=== PATIENT | male | born 1960 | race Caucasian/White ===

== ENCOUNTER 2017-07-13 16:15 | Inpatient (IN) ==
[2017-07-16 05:32] LABS: Alanine Aminotransferase 13 Units/L (7-52); Albumin 2.9 g/dL (3.5-5.7); Albumin/Globulin Ratio 1.1 (1.1-2.2); Alkaline Phosphatase 89 Units/L (34-104); Aspartate Amino Transferase 21 Units/L (13-39); BUN/Creatinine Ratio 11 (6-26); Bilirubin,Total 0.6 mg/dL (0.3-1.0); Blood Urea Nitrogen 8 mg/dL (6-20); Calcium 8.3 mg/dL (8.6-10.3); Carbon Dioxide 25 mEq/L (23-29); Chloride 105 mEq/L (98-107); Globulin 2.7 g/dL (2.4-3.5); Glucose 93 mg/dL (70-105); Osmolality,Calculated 278 (280-300); Potassium 3.9 mEq/L (3.5-5.1); Sodium 135 mEq/L (136-145); Total Protein 5.6 g/dL (6.4-8.9); eGFR For African Americans > 60 (> 60); eGFR For Non-African Americans > 60 (> 60)
[2017-07-16] MEDS ORDERED: Thiamine (B-1) 100 MG TABLET PO SCH (09:00)
[2017-07-16] MEDS: Multivit/Ca/Min/Fe/FA 1 TAB TABLET PO SCH (09:38)
[2017-07-16] MEDS: levETIRAcetam 250 MG TABLET PO SCH ×2 (09:38→21:01)
[2017-07-16] MEDS: *HR* Enoxaparin 40 MG/0.4 ML SYRINGE SQ SCH (09:39)
[2017-07-16] MEDS: Nicotine 7 MG PATCH.TD24 TD SCH (09:39)
[2017-07-16] MEDS: Sennosides 8.6 MG TABLET PO SCH (09:39)
[2017-07-16] MEDS: VENELEX TP SCH ×3 (09:40→21:02)
[2017-07-16] MEDS: Folic Acid 1 MG TABLET PO SCH (12:11)
[2017-07-17] MEDS: Sennosides 8.6 MG TABLET PO SCH (08:48)
[2017-07-17] MEDS: *HR* Enoxaparin 40 MG/0.4 ML SYRINGE SQ SCH (08:48)
[2017-07-17] MEDS: Nicotine 7 MG PATCH.TD24 TD SCH (08:49)
[2017-07-17] MEDS: levETIRAcetam 250 MG TABLET PO SCH ×2 (08:49→20:22)
[2017-07-17] MEDS: Folic Acid 1 MG TABLET PO SCH (08:50)
[2017-07-17] MEDS: VENELEX TP SCH ×3 (09:20→20:23)
[2017-07-17] MEDS: Multivit/Ca/Min/Fe/FA 1 TAB TABLET PO SCH (09:20)
--- NOTE | 2017-07-17 12:36 | Internal Med Progress Note ---
Date of Encounter: 07/17/17 Time of Encounter: 12:33 - Assessment and plan (1) Status post left hip replacement Current Visit: Yes Status: Acute Assessment and plan: Left hip surgical site appears healthy with incisions and dressings dry and intact. No erythema or edema noted. Patient mobilizing well with physical therapy. States pain medication has been effective. We will continue with current plan of care. (2) Alcoholic cirrhosis Current Visit: Yes Status: Acute Assessment and plan: No acute issues. Patient noted to have slight distention of abdomen area and history of ascites. We will monitor patient's LFTs with serial labs. Patient does state he continues to actively drink. We will monitor for any issues of withdrawal or behavior. Qualifiers: Ascites presence: with ascites Qualified Code(s): K70.31 - Alcoholic cirrhosis of liver with ascites (3) CAD (coronary artery disease) Current Visit: Yes Status: Acute Assessment and plan: No acute issues. Patient denies any chest discomforts or palpitations. We will continue with current medications. Qualifiers: Coronary Disease-Associated Artery/Lesion type: [place] artery [place] vs. transplanted heart: [place] heart Associated angina: angina presence unspecified Qualified Code(s): I25.10 - Atherosclerotic heart disease of [place] coronary artery without angina pectoris (4) CVA (cerebral vascular accident) Current Visit: Yes Status: Acute Assessment and plan: Patient with history of CVA with no residual noted. We will continue with current therapy. Vital signs stable. Qualifiers: CVA mechanism: unspecified Qualified Code(s): I63.9 - Cerebral infarction, unspecified - Time Spent With Patient less than 15 minutes - Subjective Interval history: Patient appears relaxed and currently denies any discomforts or shortness of breath. Patient does state his left hip was somewhat sore after mobilizing, but states pain medication has been effective - Constitutional Vitals: Temp Pulse Resp BP Pulse Ox 98.4 F 73 16 113/69 93 07/17/17 07:00 07/17/17 09:30 07/17/17 09:30 07/17/17 09:30 07/17/17 09:30 General appearance: Present: A&O X 3, pleasant - Head Head exam: Present: atraumatic, normocephalic - Eye Eye exam: Present: PERRL, conjuntiva pink, sclera anicteric Pupils: Present: PERRL - Neck Neck exam general surgery: Present: supple, trachea midline. Absent: lymphadenopathy - Respiratory Respiratory exam: Present: CTAB. Absent: accessory muscle use, rales, rhonchi, wheezes - Cardiovascular Cardiovascular exam: Present: RRR, +S1, +S2. Absent: diastolic murmur, gallop, rubs, systolic murmur - GI/Abdominal GI/Abdominal exam: Present: normal bowel sounds, soft, no peritoneal signs. Absent: distended, tenderness Additional comments: Slightly distended. History of ascites - Extremities Exam Extremities exam: Present: warm, radial pulses palpable and symmetrical. Absent : calf tenderness, cyanotic, pedal edema Additional comments: Left hip surgical incision appears healthy and intact. No erythema or edema noted - Neurological Exam Neurological exam: Present: CN II-XII intact, oriented X3, no focal deficits. Absent: pronater drift, facial droop, speech deficit - Skin Skin exam: Present: dry, intact Internal Medicine: Result - Labs CBC & Chem 7: 07/16/17 04:21 Consult Discharge Plan - Plan Referrals: Jame Padilla [Primary Care Provider] -
[2017-07-17 17:49] LABS: INR 1.1
[2017-07-17 17:54] LABS: Basophils % 0.6 %; Eosinophils # 0.1 K/mcL (0.0-0.6); Eosinophils % 3.4 %; Hematocrit 23.8 % (37.5-50.1); Hemoglobin 8.1 g/dL (12.9-16.9); Immature Granulocytes % 0.6 % (0-4); Lymphocytes # 0.9 K/mcL (0.6-4.6); Lymphocytes % 24.9 %; Mean Corpuscular Hemoglobin 35.4 pg (28.0-33.3); Mean Corpuscular Volume 103.9 fL (83.0-100.0); Mean Platelet Volume 9.4 fL (9.4-12.4); Monocytes # 0.4 K/mcL (0.0-1.3); Monocytes % 10.1 %; Neutrophils # 2.2 K/mcL (1.6-8.9); Platelet Count 191 K/mcL (140-400); Red Blood Count 2.29 M/mcL (4.19-5.50); Red Cell Distribution Width 14.6 % (11.5-14.5); Segmented Neutrophils % 60.4 %
[2017-07-18 06:22] LABS: Albumin 3.5 g/dL (3.5-5.7); Albumin/Globulin Ratio 1.3 (1.1-2.2); Bilirubin,Total 1.2 mg/dL (0.3-1.0); Calcium 8.8 mg/dL (8.6-10.3); Globulin 2.7 g/dL (2.4-3.5); Potassium 4.1 mEq/L (3.5-5.1); Total Protein 6.2 g/dL (6.4-8.9)
[2017-07-18 07:41] LABS: Hematocrit 20.1 % (37.5-50.1); Mean Corpuscular HGB Conc 34.8 g/dL (31.6-35.5); Mean Corpuscular Hemoglobin 36.1 pg (28.0-33.3); Mean Corpuscular Volume 103.6 fL (83.0-100.0); Mean Platelet Volume 9.4 fL (9.4-12.4); Platelet Count 172 K/mcL (140-400); Red Blood Count 1.94 M/mcL (4.19-5.50); Red Cell Distribution Width 14.6 % (11.5-14.5)
[2017-07-18] MEDS: Folic Acid 1 MG TABLET PO SCH (10:05)
[2017-07-18] MEDS: Multivit/Ca/Min/Fe/FA 1 TAB TABLET PO SCH (10:05)
[2017-07-18] MEDS: *HR* Enoxaparin 40 MG/0.4 ML SYRINGE SQ SCH (10:05)
[2017-07-18] MEDS: Nicotine 7 MG PATCH.TD24 TD SCH (10:05)
[2017-07-18] MEDS: levETIRAcetam 250 MG TABLET PO SCH ×2 (10:05→19:43)
[2017-07-18] MEDS: VENELEX TP SCH ×3 (10:06→19:45)
[2017-07-18] MEDS: Sennosides 8.6 MG TABLET PO SCH (10:07)
--- NOTE | 2017-07-18 11:20 | Internal Med Progress Note ---
Date of Encounter: 07/18/17 Time of Encounter: 11:18 - Assessment and plan (1) Status post left hip replacement Current Visit: Yes Status: Acute Assessment and plan: Continue PT\OT. Will follow progress. Monitor for pain. Follow up with ortho as scheduled. (2) Alcoholic cirrhosis Current Visit: Yes Status: Acute Assessment and plan: Will monitor labs. Abdomen slightly distended probable ascites. Skin slightly jaundiced Qualifiers: Ascites presence: with ascites Qualified Code(s): K70.31 - Alcoholic cirrhosis of liver with ascites (3) CVA (cerebral vascular accident) Current Visit: Yes Status: Acute Assessment and plan: Old CVA. New new neurological deficits at this time. Qualifiers: CVA mechanism: unspecified Qualified Code(s): I63.9 - Cerebral infarction, unspecified - Time Spent With Patient less than 15 minutes - Subjective Interval history: Participating with therapy. Patient complains often on of left shoulder pain. Unable to raise over shoulder height. Bruising to underside of left upper arm. Patient unaware of particular injury. Poor historian. Patient believed to be at baseline mentally. History of alcohol abuse with cirrhosis. Patient states he currently drinks alcohol. Hemoglobin 7.0. Will repeat labs in the morning. BUN 25 creatinine 1.56. Will encourage PO fluids. - Constitutional Vitals: Temp Pulse Resp BP Pulse Ox 98.4 F 88 16 98/65 96 07/18/17 06:00 07/18/17 06:00 07/18/17 06:00 07/18/17 06:00 07/18/17 06:00 General appearance: Present: cooperative, A&O X 1, pleasant, no acute distress - Head Head exam: Present: atraumatic, normocephalic - Eye Eye exam: Present: PERRL, conjuntiva pink, sclera anicteric Pupils: Present: PERRL - Neck Neck exam general surgery: Present: supple, trachea midline. Absent: lymphadenopathy - Respiratory Respiratory exam: Present: CTAB. Absent: accessory muscle use, rales, rhonchi, wheezes - Cardiovascular Cardiovascular exam: Present: RRR, +S1, +S2. Absent: diastolic murmur, gallop, rubs, systolic murmur - GI/Abdominal GI/Abdominal exam: Present: normal bowel sounds, soft, no peritoneal signs. Absent: distended, tenderness Additional comments: Slight abdominal and distention due to ascites. - Extremities Exam Extremities exam: Present: warm, radial pulses palpable and symmetrical. Absent : calf tenderness, cyanotic, pedal edema - [place] Comments: Left hip incision dressing dry and intact. No drainage or sign of infection. - Neurological Exam Neurological exam: Present: alert, CN II-XII intact, no focal deficits. Absent : pronater drift, facial droop, speech deficit - Skin Skin exam: Present: dry, intact Additional comments: Slightly jaundiced skin. Internal Medicine: Result - Labs CBC & Chem 7: 07/18/17 05:40 07/18/17 05:40 Labs: Short CBC 07/17/17 07/18/17 Range/Units 17:31 05:40 WBC 3.6 L 3.0 L (4.3-11.1) K/mcL Hgb 8.1 L 7.0 L (12.9-16.9) g/dL Hct 23.8 L 20.1 L (37.5-50.1) % Plt Count 191 172 (140-400) K/mcL Neutrophils # 2.2 (1.6-8.9) K/mcL BMP 07/18/17 05:40 Sodium 136 Potassium 4.1 Chloride 102 Carbon Dioxide 29 BUN 25 H Creatinine 1.56 H Glucose 130 H Calcium 8.8 Liver Function 07/18/17 Range/Units 05:40 Total Bilirubin 1.2 H (0.3-1.0) mg/dL AST 29 (13-39) Units/L ALT 30 (7-52) Units/L Alkaline Phosphatase 78 (34-104) Units/L Albumin 3.5 (3.5-5.7) g/dL - ABG Interpretation ABG results: PT/INR, D-dimer PT 12.0 Seconds (9.4-12.1) 07/17/17 17:31 Consult Discharge Plan - Plan Referrals: Jame Padilla [Primary Care Provider] -
[2017-07-18] MEDS: Thiamine (B-1) 100 MG TABLET PO SCH (16:26)
[2017-07-18 17:03] LABS: INR 1.1; Prothrombin Time 12.1 Seconds (9.4-12.1)
[2017-07-18] MEDS: cephALEXin 500 MG CAPSULE PO SCH ×2 (19:43→23:13)
[2017-07-19] MEDS: cephALEXin 500 MG CAPSULE PO SCH ×4 (05:26→22:34)
[2017-07-19 06:57] LABS: Basophils % 0.7 %; Eosinophils # 0.2 K/mcL (0.0-0.6); Eosinophils % 6.9 %; Hematocrit 20.5 % (37.5-50.1); Immature Granulocytes % 0.3 % (0-4); Lymphocytes % 33.7 %; Mean Corpuscular HGB Conc 34.1 g/dL (31.6-35.5); Mean Corpuscular Hemoglobin 35.7 pg (28.0-33.3); Mean Corpuscular Volume 104.6 fL (83.0-100.0); Mean Platelet Volume 8.9 fL (9.4-12.4); Monocytes # 0.3 K/mcL (0.0-1.3); Monocytes % 11.5 %; Neutrophils # 1.4 K/mcL (1.6-8.9); Platelet Count 181 K/mcL (140-400); Red Blood Count 1.96 M/mcL (4.19-5.50); Red Cell Distribution Width 14.6 % (11.5-14.5); Segmented Neutrophils % 46.9 %
[2017-07-19 07:28] LABS: Alanine Aminotransferase 18 Units/L (7-52); Albumin 3.2 g/dL (3.5-5.7); Albumin/Globulin Ratio 1.1 (1.1-2.2); Alkaline Phosphatase 102 Units/L (34-104); Aspartate Amino Transferase 24 Units/L (13-39); BUN/Creatinine Ratio 15 (6-26); Bilirubin,Total 0.7 mg/dL (0.3-1.0); Blood Urea Nitrogen 11 mg/dL (6-20); Calcium 8.7 mg/dL (8.6-10.3); Carbon Dioxide 26 mEq/L (23-29); Chloride 103 mEq/L (98-107); Globulin 2.9 g/dL (2.4-3.5); Glucose 99 mg/dL (70-105); Osmolality,Calculated 279 (280-300); Potassium 4.3 mEq/L (3.5-5.1); Sodium 135 mEq/L (136-145); Total Protein 6.1 g/dL (6.4-8.9); eGFR For African Americans > 60 (> 60); eGFR For Non-African Americans > 60 (> 60)
[2017-07-19] MEDS: Sennosides 8.6 MG TABLET PO SCH (09:08)
[2017-07-19] MEDS: Multivit/Ca/Min/Fe/FA 1 TAB TABLET PO SCH (09:09)
[2017-07-19] MEDS: levETIRAcetam 250 MG TABLET PO SCH ×2 (09:10→20:12)
[2017-07-19] MEDS: Folic Acid 1 MG TABLET PO SCH (09:10)
[2017-07-19] MEDS: VENELEX TP SCH ×3 (09:11→17:49)
[2017-07-19] MEDS: Thiamine (B-1) 100 MG TABLET PO SCH (09:11)
[2017-07-19] MEDS: Nicotine 7 MG PATCH.TD24 TD SCH (09:17)
[2017-07-19] MEDS: *HR* Enoxaparin 40 MG/0.4 ML SYRINGE SQ SCH (09:18)
--- NOTE | 2017-07-19 10:14 | Internal Med History&Physical ---
Date of Encounter: 07/16/17 Time of Encounter: 19:05 Assessment and Plan (1) Alcoholic cirrhosis Current visit: Yes Status: Acute Apparently, this is well-known and is at baseline. The patient states he is off heavy alcohol and down to only 12-13 beers per day. He has little insight into this and states that he has been involved with AA in the past. Family ( father) is aware of his alcohol intake. He has had paracentesis in the past but it is unsure as to how long ago. Will discuss with other family members, as available. Caregiver is not currently available. Qualifiers: Ascites presence: with ascites Qualified Code(s): K70.31 - Alcoholic cirrhosis of liver with ascites (2) CAD (coronary artery disease) Current visit: Yes Status: Acute This is stable, per patient. No recent symptoms. Per history received, had an non-STEMI in the past. Again, per history provided empirically April 2016. Will continue home regimen. Qualifiers: Coronary Disease-Associated Artery/Lesion type: [place] artery [place] vs. transplanted heart: [place] heart Associated angina: angina presence unspecified Qualified Code(s): I25.10 - Atherosclerotic heart disease of [place] coronary artery without angina pectoris (3) Status post left hip replacement Current visit: Yes Status: Acute We will begin therapies as planned. I am concerned that he will be able to retain information, given his baseline mental status. Family will have a discussion, when they are available. (4) CVA (cerebral vascular accident) Current visit: Yes Status: Acute Etiology is uncertain history is vague, per patient. We will monitor, continue as planned. Qualifiers: CVA mechanism: unspecified Qualified Code(s): I63.9 - Cerebral infarction, unspecified (5) Seizure disorder Current visit: Yes Status: Acute Etiology is uncertain. This might have been alcohol withdrawal. In any event, is on anti-epileptics and will keep an seizure precautions. Watch for symptoms. (6) Hypothyroidism Current visit: Yes Status: Acute Clinically stable. We will continue home regimen and follow. Qualifiers: Hypothyroidism type: unspecified Qualified Code(s): E03.9 - Hypothyroidism , unspecified Internal Medicine - H&P: HPI Chief complaint: Status post left hip fracture with left total hip replacement. Admitted From: Home Plans for Post Hospital Care: Home History of present illness: Mr. Phelan is a 56 year old male known to have alcoholic cirrhosis. He was at home but fell in the bathroom, found him and he was found to have a hip fracture. Underwent left total hip replacement. He has failed to improve after surgery, in terms of mental status. He states his pain is mild, at worst. Past Med Surg Social Fam HX - Past Medical History Source: unable to obtain Medical history: cirrhosis, coronary artery disease, CVA, myocardial infarction , seizures, thyroid disease - Past Surgical History Surgical History: orthopedic, other - Social History Smoking Status: Current every day smoker Packs per day: 1/2 pack Smokeless Tobacco Status: No Alcohol use: occasionally Drug use: none Internal Medicine - H&P: Meds Aspirin Enteric Coated [Aspirin EC] 81 mg PO DAILY 07/15/17 [History] Balsam [place] Oil [Venelex Ointment Packet] 1 appful TP TID 07/15/17 [ History] Enoxaparin [Lovenox] 40 mg SQ DAILY 07/15/17 [History] Ergocalciferol (VITAMIN D2) [Drisdol (50,000 Unit)] 50,000 unit PO QWEEK [History] Folic Acid 1 mg PO DAILY 07/15/17 [History] LevETIRAcetam [Keppra] 1,500 mg PO HS 07/15/17 [History] LevETIRAcetam [Keppra] 750 mg PO DAILY 07/15/17 [History] Levothyroxine [Synthroid] 50 mcg PO 0630 07/15/17 [History] Lipitor 40 mg PO DAILY 07/15/17 [History] Multivit/Ca/Min/Fe/FA [Thera M Plus] 1 tab PO DAILY 07/15/17 [History] Nicotine Patch [Nicoderm] 7 mg TD DAILY 07/15/17 [History] Pantoprazole Sodium [Protonix] 40 mg PO DAILY 07/15/17 [History] Potassium Chloride [K-Tab ER] 20 meq PO DAILY 07/15/17 [History] Sennosides [Senokot] 8.6 mg PO DAILY 07/15/17 [History] Thiamine (B-1) [Vitamin B-1] 1 tab PO DAILY 07/15/17 [History] 3 Allergy/AdvReac Type Severity Reaction Status Date / Time No Known Allergies Allergy Verified 07/15/17 21:28 ROS unobtainable: due to mental status All Systems PM: Review of systems is limited by patient's mental status. It is obtained but of questionable value. Patient has no complaint of chest discomfort, dyspnea, orthopnea, palpitations, nausea or vomiting, constipation or diarrhea, other changes in bowel habits, difficulty with urination, rash or itching, or other new complaints, except as mentioned above. Review of systems is otherwise unremarkable. - Constitutional Vitals: Temp Pulse Resp BP Pulse Ox 98.1 F 86 16 100/65 96 07/19/17 09:00 07/19/17 09:00 07/19/17 09:00 07/19/17 09:00 07/19/17 09:00 General appearance: Present: cooperative, A&O X 1, pleasant Exam: Examination: (Except as mentioned above): General: In no apparent distress, alert and oriented 1, only. He does pretty well at discussing his disorientation. Head: Atraumatic and normocephalic. Eyes: Extraocular muscles are intact, pupils equal round and reactive to light and accommodation. Sclerae anicteric. Ears: External ears are normal to inspection and hearing is grossly normal. Nose: Patent without lesion noted. Mouth: No intraoral lesions seen. He is edentulous without dentures. Neck: Supple with trachea midline. There is no thyromegaly or adenopathy and carotids are 2+ without bruit heard. Respiratory: No use of accessory muscles. Lungs are clear throughout. Normal airflow. Cardiovascular: Regular rate and rhythm without murmur appreciated. Abdomen: Bowel sounds are normal. No hepatosplenomegaly masses or tenderness. Obese and therefore difficult to palpate deeply. Extremities: No cyanosis clubbing or edema. Left hip without erythema or swelling beyond usual postop; nothing to suggest cellulitis. Neurological: A and O 1, as above. Cranial nerves II through XII are intact. No focal deficits and no abnormal movements or postures. While his responsiveness is limited, he has no asterixis. Skin: Warm and non-diaphoretic with no lesions noted. Breasts, pelvic and rectal: Not examined. Internal Med - H&P Results - Labs CBC & Chem 7: 07/19/17 06:45 07/19/17 06:45 Labs: Short CBC 07/19/17 Range/Units 06:45 WBC 2.9 L (4.3-11.1) K/mcL Hgb 7.0 L (12.9-16.9) g/dL Hct 20.5 L (37.5-50.1) % Plt Count 181 (140-400) K/mcL Neutrophils # 1.4 L (1.6-8.9) K/mcL BMP 07/19/17 06:45 Sodium 135 L Potassium 4.3 Chloride 103 Carbon Dioxide 26 BUN 11 Creatinine 0.71 Glucose 99 Calcium 8.7 Liver Function 07/19/17 Range/Units 06:45 Total Bilirubin 0.7 (0.3-1.0) mg/dL AST 24 (13-39) Units/L ALT 18 (7-52) Units/L Alkaline Phosphatase 102 (34-104) Units/L Albumin 3.2 L (3.5-5.7) g/dL
--- NOTE | 2017-07-19 14:01 | Internal Med Progress Note ---
Date of Encounter: 07/19/17 Time of Encounter: 13:58 - Assessment and plan (1) Status post left hip replacement Current Visit: Yes Status: Acute Assessment and plan: Continue PT\OT. Will follow progress. Monitor for pain. Follow up with ortho as scheduled. (2) Alcoholic cirrhosis Current Visit: Yes Status: Acute Assessment and plan: Will monitor labs. Skin slightly jaundiced Qualifiers: Ascites presence: with ascites Qualified Code(s): K70.31 - Alcoholic cirrhosis of liver with ascites (3) CVA (cerebral vascular accident) Current Visit: Yes Status: Acute Assessment and plan: Old CVA. New new neurological deficits at this time. Qualifiers: CVA mechanism: unspecified Qualified Code(s): I63.9 - Cerebral infarction, unspecified (4) Postoperative anemia due to acute blood loss Current Visit: Yes Status: Acute Assessment and plan: Hemoglobin stable at 7.0. Will repeat CBC AM - Time Spent With Patient 25 - 35 minutes - Subjective Interval history: Participating with therapy. Ambulated hundred and 60 feet with standby to contact guard assist. Patient complains often on of left shoulder pain. Unable to raise over shoulder height. Refused x-ray. Bruising to underside of left upper arm. Patient unaware of particular injury. Poor historian. Patient believed to be at baseline mentally. History of alcohol abuse with cirrhosis. - Constitutional Vitals: Temp Pulse Resp BP Pulse Ox 98.1 F 86 16 100/65 96 07/19/17 09:00 07/19/17 09:00 07/19/17 09:00 07/19/17 09:00 07/19/17 09:00 General appearance: Present: cooperative, A&O X 1, pleasant - Head Head exam: Present: atraumatic, normocephalic - Eye Eye exam: Present: PERRL, conjuntiva pink, sclera anicteric Pupils: Present: PERRL - Neck Neck exam general surgery: Present: supple, trachea midline. Absent: lymphadenopathy - Respiratory Respiratory exam: Present: CTAB. Absent: accessory muscle use, rales, rhonchi, wheezes - Cardiovascular Cardiovascular exam: Present: RRR, +S1, +S2. Absent: diastolic murmur, gallop, rubs, systolic murmur - GI/Abdominal GI/Abdominal exam: Present: normal bowel sounds, soft, no peritoneal signs. Absent: distended, tenderness - Extremities Exam Extremities exam: Present: warm, radial pulses palpable and symmetrical. Absent : calf tenderness, cyanotic, pedal edema - Neurological Exam Neurological exam: Present: CN II-XII intact, oriented X3, no focal deficits. Absent: pronater drift, facial droop, speech deficit - Skin Skin exam: Present: dry, intact Additional comments: Slightly jaundiced skin. Left hip incision dressing dry and intact. No sign of infection. Internal Medicine: Result - Labs CBC & Chem 7: 07/19/17 06:45 07/19/17 06:45 Labs: Short CBC 07/19/17 Range/Units 06:45 WBC 2.9 L (4.3-11.1) K/mcL Hgb 7.0 L (12.9-16.9) g/dL Hct 20.5 L (37.5-50.1) % Plt Count 181 (140-400) K/mcL Neutrophils # 1.4 L (1.6-8.9) K/mcL BMP 07/19/17 06:45 Sodium 135 L Potassium 4.3 Chloride 103 Carbon Dioxide 26 BUN 11 Creatinine 0.71 Glucose 99 Calcium 8.7 Liver Function 07/19/17 Range/Units 06:45 Total Bilirubin 0.7 (0.3-1.0) mg/dL AST 24 (13-39) Units/L ALT 18 (7-52) Units/L Alkaline Phosphatase 102 (34-104) Units/L Albumin 3.2 L (3.5-5.7) g/dL - ABG Interpretation ABG results: PT/INR, D-dimer PT 12.1 Seconds (9.4-12.1) 07/18/17 15:10 Consult Discharge Plan - Plan Referrals: Jame Padilla [Primary Care Provider] -
[2017-07-20] MEDS: cephALEXin 500 MG CAPSULE PO SCH ×4 (06:29→21:59)
[2017-07-20 07:41] LABS: Basophils % 0.4 %; Eosinophils # 0.2 K/mcL (0.0-0.6); Eosinophils % 5.7 %; Hematocrit 19.6 % (37.5-50.1); Hemoglobin 6.6 g/dL (12.9-16.9); Immature Granulocytes % 0.4 % (0-4); Lymphocytes # 0.9 K/mcL (0.6-4.6); Lymphocytes % 35.7 %; Mean Corpuscular HGB Conc 33.7 g/dL (31.6-35.5); Mean Corpuscular Hemoglobin 35.5 pg (28.0-33.3); Mean Corpuscular Volume 105.4 fL (83.0-100.0); Mean Platelet Volume 9.3 fL (9.4-12.4); Monocytes # 0.3 K/mcL (0.0-1.3); Monocytes % 9.9 %; Neutrophils # 1.3 K/mcL (1.6-8.9); Platelet Count 214 K/mcL (140-400); Red Blood Count 1.86 M/mcL (4.19-5.50); Red Cell Distribution Width 14.8 % (11.5-14.5); Segmented Neutrophils % 47.9 %
[2017-07-20] MEDS: Sennosides 8.6 MG TABLET PO SCH (08:53)
[2017-07-20] MEDS: levETIRAcetam 250 MG TABLET PO SCH ×2 (08:53→20:07)
[2017-07-20] MEDS: Multivit/Ca/Min/Fe/FA 1 TAB TABLET PO SCH (08:54)
[2017-07-20] MEDS: Thiamine (B-1) 100 MG TABLET PO SCH (08:54)
[2017-07-20] MEDS: Folic Acid 1 MG TABLET PO SCH (08:54)
[2017-07-20] MEDS: Nicotine 7 MG PATCH.TD24 TD SCH (08:55)
[2017-07-20] MEDS: *HR* Enoxaparin 40 MG/0.4 ML SYRINGE SQ SCH (08:55)
[2017-07-20] MEDS: VENELEX TP SCH ×3 (09:17→20:07)
--- NOTE | 2017-07-20 14:45 | Internal Med Progress Note ---
Date of Encounter: 07/20/17 Time of Encounter: 14:43 - Assessment and plan (1) Anemia due to acute blood loss Current Visit: Yes Status: Acute Assessment and plan: Patient's hemoglobin continued to drop down to 6.6. Patient remains asymptomatic. No signs of active bleeding noted. We will transfuse with 2 units of packed RBCs. Will require call stools. Discontinue Lovenox and place MAYTE hose on. We will recheck labs in the morning. (2) Status post left hip replacement Current Visit: Yes Status: Acute Assessment and plan: Left hip surgical site appears healthy with incisions and dressings dry and intact. No erythema or edema noted. Patient mobilizing well with physical therapy. States pain medication has been effective. We will continue with current plan of care. Patient being prepared for discharge tomorrow. (3) Alcoholic cirrhosis Current Visit: Yes Status: Acute Assessment and plan: No acute issues. Patient noted to have slight distention of abdomen area and history of ascites. Patient's LFTs on labs remained stable. Patient does state he continues to actively drink. No issues of withdrawal or behaviors during his stay. Qualifiers: Ascites presence: with ascites Qualified Code(s): K70.31 - Alcoholic cirrhosis of liver with ascites (4) CAD (coronary artery disease) Current Visit: Yes Status: Acute Assessment and plan: No acute issues. Patient denies any chest discomforts or palpitations. We will continue with current medications. Qualifiers: Coronary Disease-Associated Artery/Lesion type: [place] artery [place] vs. transplanted heart: [place] heart Associated angina: angina presence unspecified Qualified Code(s): I25.10 - Atherosclerotic heart disease of [place] coronary artery without angina pectoris (5) CVA (cerebral vascular accident) Current Visit: Yes Status: Acute Assessment and plan: Patient with history of CVA with no residual noted. We will continue with current therapy. Vital signs stable. Qualifiers: CVA mechanism: unspecified Qualified Code(s): I63.9 - Cerebral infarction, unspecified - Subjective Interval history: Patient appears relaxed and currently denies any discomforts or shortness of breath. Patient's morning labs were reviewed which shows that hemoglobin has again dropped to 6.6. Patient denies any symptoms when questioned. Vital signs stable. Patient does state his left hip was somewhat sore after mobilizing, but states pain medication has been effective - Constitutional Vitals: Temp Pulse Resp BP Pulse Ox 98.3 F 90 16 113/70 96 07/20/17 07:44 07/20/17 07:44 07/20/17 07:44 07/20/17 07:44 07/20/17 07:44 General appearance: Present: cooperative, A&O X 3, pleasant - Head Head exam: Present: atraumatic, normocephalic - Eye Eye exam: Present: PERRL, conjuntiva pink, sclera anicteric Pupils: Present: PERRL - Neck Neck exam general surgery: Present: supple, trachea midline. Absent: lymphadenopathy - Respiratory Respiratory exam: Present: CTAB. Absent: accessory muscle use, rales, rhonchi, wheezes - Cardiovascular Cardiovascular exam: Present: RRR, +S1, +S2. Absent: diastolic murmur, gallop, rubs, systolic murmur - GI/Abdominal GI/Abdominal exam: Present: normal bowel sounds, soft, no peritoneal signs. Absent: distended, tenderness Additional comments: Slightly distended, but soft - Extremities Exam Extremities exam: Present: warm, radial pulses palpable and symmetrical. Absent : calf tenderness, cyanotic, pedal edema Additional comments: Left hip surgical incision appears dry and intact. No ecchymosis or swelling noted. - Neurological Exam Neurological exam: Present: CN II-XII intact, oriented X3, no focal deficits. Absent: pronater drift, facial droop, speech deficit - Skin Skin exam: Present: dry, intact Internal Medicine: Result - Labs CBC & Chem 7: 07/20/17 06:45 07/19/17 06:45 Labs: Short CBC 07/20/17 Range/Units 06:45 WBC 2.6 L (4.3-11.1) K/mcL Hgb 6.6 L (12.9-16.9) g/dL Hct 19.6 L (37.5-50.1) % Plt Count 214 (140-400) K/mcL Neutrophils # 1.3 L (1.6-8.9) K/mcL - ABG Interpretation ABG results: PT/INR, D-dimer PT 12.1 Seconds (9.4-12.1) 07/18/17 15:10 Consult Discharge Plan - Plan Referrals: Jame Padilla [Primary Care Provider] -
[2017-07-21 06:59] LABS: Hematocrit 27.4 % (37.5-50.1); Hemoglobin 9.4 g/dL (12.9-16.9); Mean Corpuscular HGB Conc 34.3 g/dL (31.6-35.5); Mean Corpuscular Volume 96.1 fL (83.0-100.0); Mean Platelet Volume 8.9 fL (9.4-12.4); Platelet Count 244 K/mcL (140-400); Red Blood Count 2.85 M/mcL (4.19-5.50); Red Cell Distribution Width 19.2 % (11.5-14.5)
[2017-07-21 07:07] VITALS: BP 110/70
[2017-07-21] MEDS: Thiamine (B-1) 100 MG TABLET PO SCH (08:22)
[2017-07-21] MEDS: Sennosides 8.6 MG TABLET PO SCH (08:22)
[2017-07-21] MEDS: cephALEXin 500 MG CAPSULE PO SCH ×2 (08:23→12:59)
[2017-07-21] MEDS: Nicotine 7 MG PATCH.TD24 TD SCH (08:24)
[2017-07-21] MEDS: levETIRAcetam 250 MG TABLET PO SCH (08:24)
[2017-07-21] MEDS: Folic Acid 1 MG TABLET PO SCH (08:24)
[2017-07-21] MEDS: Multivit/Ca/Min/Fe/FA 1 TAB TABLET PO SCH (08:24)
[2017-07-21] MEDS: VENELEX TP SCH (08:25)
--- NOTE | 2017-07-21 09:38 | Discharge Summary ---
Orders not resulted at time of discharge: Pending orders 07/24/17 04:00 BMP [Basic Metabolic Panel] MO CBC [Complete Blood Count] [HEME] MO 07/31/17 04:00 BMP [Basic Metabolic Panel] MO CBC [Complete Blood Count] [HEME] MO 08/07/17 04:00 BMP [Basic Metabolic Panel] MO CBC [Complete Blood Count] [HEME] MO 08/14/17 04:00 BMP [Basic Metabolic Panel] MO CBC [Complete Blood Count] [HEME] MO 08/21/17 04:00 BMP [Basic Metabolic Panel] MO CBC [Complete Blood Count] [HEME] MO 08/28/17 04:00 BMP [Basic Metabolic Panel] MO CBC [Complete Blood Count] [HEME] MO 09/04/17 04:00 BMP [Basic Metabolic Panel] MO CBC [Complete Blood Count] [HEME] MO 09/11/17 04:00 BMP [Basic Metabolic Panel] MO CBC [Complete Blood Count] [HEME] MO 09/18/17 04:00 BMP [Basic Metabolic Panel] MO CBC [Complete Blood Count] [HEME] MO 09/25/17 04:00 BMP [Basic Metabolic Panel] MO CBC [Complete Blood Count] [HEME] MO Date of Encounter: 07/21/17 Time of Encounter: 09:36 - Discharge Diagnosis (1) Status post left hip replacement Priority: Primary Status: Acute (2) Anemia due to acute blood loss Priority: Secondary Status: Acute (3) Alcoholic cirrhosis Priority: Secondary Status: Chronic Qualifiers: Ascites presence: with ascites Qualified Code(s): K70.31 - Alcoholic cirrhosis of liver with ascites (4) CAD (coronary artery disease) Priority: Secondary Status: Chronic Qualifiers: Coronary Disease-Associated Artery/Lesion type: [place] artery [place] vs. transplanted heart: [place] heart Associated angina: angina presence unspecified Qualified Code(s): I25.10 - Atherosclerotic heart disease of [place] coronary artery without angina pectoris (5) CVA (cerebral vascular accident) Priority: Secondary Status: Chronic Qualifiers: CVA mechanism: unspecified Qualified Code(s): I63.9 - Cerebral infarction, unspecified Hospital course: Mr. Phelan is a 56 year old male who experienced a fall at home and had a left hip fracture. Patient had a total hip replacement on the left and surgically recovered well at Hospital. Patient did have issues with confusion postoperatively and currently remains mildly confused at times. Patient has a long history of EtOH abuse and alcoholic cirrhosis. Patient's LFTs were followed and remained stable. Patient did have postoperative anemia with his hemoglobin eventually dropping to 6.6. Patient received 2 units of packed RBCs with his post transfusion hemoglobin greater than 9. Patient had no obvious signs of bleeding noted. Patient was admitted into rehabilitation due to his debility following his hip replacement and progressed well with therapy. No other issues were experienced. Discharge discussed with: patient, family Time spent discussing smoking cessation with patient: 3 to 10 minutes - Time Spent with Patient Total time spent providing and/or coordinating discharge services: Less than 30 minutes - Discharge Medications Home Medications: Aspirin Enteric Coated [Aspirin EC] 81 mg PO DAILY 07/15/17 [History] Balsam [place] Oil [Venelex Ointment Packet] 1 appful TP TID 07/15/17 [ History] Enoxaparin [Lovenox] 40 mg SQ DAILY 07/15/17 [History] Ergocalciferol (VITAMIN D2) [Drisdol (50,000 Unit)] 50,000 unit PO QWEEK [History] Folic Acid 1 mg PO DAILY 07/15/17 [History] LevETIRAcetam [Keppra] 1,500 mg PO HS 07/15/17 [History] LevETIRAcetam [Keppra] 750 mg PO DAILY 07/15/17 [History] Levothyroxine [Synthroid] 50 mcg PO 0630 07/15/17 [History] Lipitor 40 mg PO DAILY 07/15/17 [History] Multivit/Ca/Min/Fe/FA [Thera M Plus] 1 tab PO DAILY 07/15/17 [History] Nicotine Patch [Nicoderm] 7 mg TD DAILY 07/15/17 [History] Pantoprazole Sodium [Protonix] 40 mg PO DAILY 07/15/17 [History] Potassium Chloride [K-Tab ER] 20 meq PO DAILY 07/15/17 [History] Sennosides [Senokot] 8.6 mg PO DAILY 07/15/17 [History] Thiamine (B-1) [Vitamin B-1] 1 tab PO DAILY 07/15/17 [History] Allergies/Adverse Reactions: 3 Allergy/AdvReac Type Severity Reaction Status Date / Time No Known Allergies Allergy Verified 05/05/18 21:28 Date of admission: 07/15/17 20:30 Primary care physician: Jame Padilla Consults: 07/15/17 21:31 Consult to Occupational Therapy [CONS] Routine Comment: eval and treat Reason for Consult: weakness old CVA Does patient have active BEDREST order?: No Is patient medically & hemodynamically stable?: Yes Patient assessed for mobility or mobilized this visit?: Yes Consult to Physical Therapy [CONS] Routine Comment: eval and treat Reason for Consult: left hip pinning Does patient have active BEDREST order?: No Is patient medically & hemodynamically stable?: Yes Patient assessed for mobility or mobilized this visit?: Yes Consult to Director Of Laboratory Operations [CONS] Routine Reason for SW Consult: discharge planning 07/17/17 13:12 Consult to Physical Medicine/Rehab [CONS] Routine Reason for Consult: left hip replacement Time Notified: 13:12 Call Completed: No Discharging clinician: Dilan Pierson Anticipated date of discharge: 07/21/17 - Constitutional Vitals: Temp Pulse Resp BP Pulse Ox 98.2 F 82 18 110/70 94 07/21/17 07:00 07/21/17 07:00 07/21/17 07:00 07/21/17 07:00 07/21/17 07:00 General appearance: Present: cooperative, A&O X 3, pleasant - Head Head exam: Present: atraumatic, normocephalic - Eye Eye exam: Present: PERRL, conjuntiva pink, sclera anicteric Pupils: Present: PERRL - Neck Neck exam general surgery: Present: supple, trachea midline. Absent: lymphadenopathy - Respiratory Respiratory exam: Present: CTAB. Absent: accessory muscle use, rales, rhonchi, wheezes - Cardiovascular Cardiovascular exam: Present: RRR, +S1, +S2. Absent: diastolic murmur, gallop, rubs, systolic murmur - GI/Abdominal GI/Abdominal exam: Present: normal bowel sounds, soft, no peritoneal signs. Absent: distended, tenderness Additional comments: Slightly distended, but soft. Nontender. Bowel sounds heard all quadrants. - Extremities Exam Extremities exam: Present: warm, radial pulses palpable and symmetrical. Absent : calf tenderness, cyanotic, pedal edema Additional comments: Left hip surgical incisions appear to be healing well. Dry and intact. No signs of infection, edema or erythema. - Neurological Exam Neurological exam: Present: CN II-XII intact, oriented X3, no focal deficits. Absent: pronater drift, facial droop, speech deficit - Skin Skin exam: Present: dry, intact - Patient Status Disposition: Home Health Service Condition: Good Functional capacity at discharge: uses cane/walker Overall status at discharge: patient is progressing back to baseline - Discharge Instructions Follow Up With: Jame Padilla [Primary Care Provider] - - Diet and Activity Activity: ambulate only with your walker, as per physical therapy, resume usual activities as tolerated Diet: low fat, low cholesterol, low salt diet
--- NOTE | 2017-07-21 09:44 | Physician Discharge Referral ---
Home Health/Hosp Referral Info Transfer to: Home Health Provider in Charge Post Discharge: PCP - Diagnosis (1) Status post left hip replacement Priority: Primary Status: Acute (2) Anemia due to acute blood loss Priority: Secondary Status: Acute (3) Alcoholic cirrhosis Priority: Secondary Status: Chronic (4) CAD (coronary artery disease) Priority: Secondary Status: Chronic (5) CVA (cerebral vascular accident) Priority: Secondary Status: Chronic - Respiratory Orders Smoking Cessation: Smoking cessation has been advised. For more information, call the [place] Tobacco Quit Line at 7-587-YCYH-NOW. - Diet/Nutrition Diet/Nutrition Orders: No Added Salt (TOMY) - Activity Activity Orders: Up ad riki, Walker - Services Needed Following services are medically necessary services: Nursing, Home Health Aide, Physical Therapy (nursing to draw CBC in one week and send results to PCP) - Transfer Medications Home Medications: Aspirin Enteric Coated [Aspirin EC] 81 mg PO DAILY 07/15/17 [History] Balsam [place] Oil [Venelex Ointment Packet] 1 appful TP TID 07/15/17 [ History] Enoxaparin [Lovenox] 40 mg SQ DAILY 07/15/17 [History] Ergocalciferol (VITAMIN D2) [Drisdol (50,000 Unit)] 50,000 unit PO QWEEK [History] Folic Acid 1 mg PO DAILY 07/15/17 [History] LevETIRAcetam [Keppra] 1,500 mg PO HS 07/15/17 [History] LevETIRAcetam [Keppra] 750 mg PO DAILY 07/15/17 [History] Levothyroxine [Synthroid] 50 mcg PO 0630 07/15/17 [History] Lipitor 40 mg PO DAILY 07/15/17 [History] Multivit/Ca/Min/Fe/FA [Thera M Plus] 1 tab PO DAILY 07/15/17 [History] Nicotine Patch [Nicoderm] 7 mg TD DAILY 07/15/17 [History] Pantoprazole Sodium [Protonix] 40 mg PO DAILY 07/15/17 [History] Potassium Chloride [K-Tab ER] 20 meq PO DAILY 07/15/17 [History] Sennosides [Senokot] 8.6 mg PO DAILY 07/15/17 [History] Thiamine (B-1) [Vitamin B-1] 1 tab PO DAILY 07/15/17 [History] Allergies/Adverse Reactions: 3 Allergy/AdvReac Type Severity Reaction Status Date / Time No Known Allergies Allergy Verified 07/15/17 21:28 Certification: Further, I certify that my clinical findings support that this patient is homebound (i.e. absences from home require considerable and taxing effort and are for medical reasons or mu-ism services or infrequently or short duration when for other reasons) because: Homebound Reason: Patient requires assistance of a person or device to safely leave home, Leaving home requires considerable and taxing effort due to condition Attestation: My signature below is to certify that this patient is under my care and that I, or nurse practitioner, or a physician's career services assistant working with me, has a face-to -face encounter with this patient.
== END 2017-07-21 15:25 | disposition home health service (06) | DRG 560 ==
LOC: INPGRE 07-15 20:30